=== PATIENT | male | born 1985 | race Caucasian/White ===

== ENCOUNTER 2023-11-14 13:04 | Emergency (ER) | payer BC ==
[2023-11-14 13:28] VITALS: TEMP 96.8
[2023-11-14] MEDS: XYLOCAINE 1% HCL 20 ML MDV IJ ONE (13:40)
[2023-11-14] MEDS ORDERED: XYLOCAINE 1% HCL 20 ML MDV ONE (13:41)
--- NOTE | 2023-11-14 14:01 | ERPHSYRPT ---
- History of Present Illness Time Seen by Provider: 11/14/23 13:29 Source: patient, family () Exam Limitations: no limitations Patient Subjective Stated Complaint: Laceration Triage Nursing Assessment: Patient ambulated back to ED and transferred self to bed. Patient A+O x 3. Patient's skin pink, warm and dry. Patient states he was lifting a broken toilet when it broke causing a laceration to right wrist area. Patient has 4 cm laceration noted. 2 cm noted to be scratch and 2 cm X 0.5 cm. Patient denies pain or discomfort. reports patient passed out in the car on the way to hospital and had a seizure. Patient's pants and underpants noted to be wet. Physician History: About 1 hour ago pt was lifting a porcelain toilet at a friend's house and cut his right wrist. On the way to the hospital pt had a ~ 1 minute seizure described as jerking with loss of consciousness. Pt denies chest pain, shortness of air, fever, abdominal pain. Last tetanus is within 5 years. Allergies/Adverse Reactions: No Known Drug Allergies Allergy (Unverified 11/14/23 13:09) Home Medications: No Reportable Medications [No Reported Medications] 11/14/23 [History] Hx Influenza Vaccination/Date Given: No Hx Pneumococcal Vaccination/Date Given: No Immunizations Up to Date: Yes Travel Risk - International Travel Have you traveled outside of the country in past 3 weeks: No - Emerging Infectious Disease Are you exhibiting symptoms associated with any current EIDs: No - Review of Systems Constitutional: No Fever Ears, Nose, & Throat: No Ear Pain, No Throat Pain Respiratory: No Dyspnea Cardiac: No Chest Pain Abdominal/Gastrointestinal: No Abdominal Pain, No Nausea, No Vomiting, No Diarrhea Genitourinary Symptoms: No Dysuria Skin: Other (laceration to right wrist) Neurological: No Headache - Past Medical History Pertinent Past Medical History: No Neurological History: No Pertinent History ENT History: No Pertinent History Cardiac History: No Pertinent History Respiratory History: No Pertinent History Endocrine Medical History: No Pertinent History Musculoskeletal History: No Pertinent History GI Medical History: No Pertinent History History: No Pertinent History Psycho-Social History: No Pertinent History Male Reproductive Disorders: No Pertinent History - Past Surgical History Past Surgical History: No Neuro Surgical History: No Pertinent History Cardiac: No Pertinent History Respiratory: No Pertinent History Gastrointestinal: No Pertinent History Genitourinary: No Pertinent History Musculoskeletal: No Pertinent History Male Surgical History: No Pertinent History - Social History Smoking Status: Current every day smoker How long have you smoked: years Exposure to second hand smoke: Yes Drug Use: none - Social Determinants of Health Will the patient participate in the screening: Yes Do you worry about a steady place to live?: No Do you have any problems with any of the following?: No known problems In the past 12 months,have you had to go without utilities?: No Transportation Issues: No Has anyone in your support network made you feel unsafe?: No Have you or anyone in your house had to go without enough: No - Nursing Vital Signs Nursing Vital Signs: Initial Vital Signs Temperature 96.8 F 11/14/23 13:13 Pulse Rate 79 11/14/23 13:13 Respiratory Rate 20 11/14/23 13:13 Blood Pressure 107/73 11/14/23 13:13 O2 Sat by Pulse Oximetry 94 L 11/14/23 13:13 Pain Scale Pain Intensity 0 - [place] Coma Scale Best Eye Response (Chaim): (4) open spontaneously Best Verbal Response ([place]): (5) oriented Best Motor Response (Chaim): (6) obeys commands [place] Total: 15 - Physical Exam General Appearance: alert Eye Exam: bilateral eye: PERRL, EOMI Ears, Nose, Throat Exam: TMs normal, pharynx normal, moist mucous membranes Neck Exam: normal inspection Respiratory: lungs clear, airway intact Cardiovascular: normal heart sounds Gastrointestinal: normal bowel sounds Extremity Exam: normal range of motion, No pedal edema Peripheral Pulses: dorsalis-pedis (R): 2+, dorsalis-pedis (L): 2+ Mental Status: alert, cooperative stitcher set up operator automatic Exam: normal hearing, normal speech, PERRL, tongue midline, No facial asymmetry Motor/Sensory: no motor deficit, no sensory deficit Skin Exam: laceration (volar aspect of right wrist has a ~ 2 cm scratch and a 2 cm laceration) SpO2 Interpretation: normal SpO2: 94 O2 Delivery: Room Air Procedures - Laceration/Wound Repair Right Volar Wrist Wound Location: Right, wrist Wound Length (cm): 2 Wound's Depth, Shape: superficial Wound Explored: clean Irrigated: Yes Hibiclens Prep: Yes Anesthesia: 1% Lidocaine Volume Anesthetic (ccs): 4 Wound Repaired With: sutures Suture Size/Type: 4-0, prolene Number of Sutures: 7 Layer Closure?: No - Course Nursing assessment & vital signs reviewed: Yes EKG Interpreted by Me: RATE (85), Sinus Rhythm, NORMAL AXIS, Other (QTc = 433) - Radiology Exams Chest X-ray Interpretation: Teleradiologist Report (X-ray for the chest is unremarkable), No Pneumonia - CT Exams Head CT Interpretation: Negative (No acute intracranial abnormality) Ordered Tests: Active Orders 24 hr Category Date Time Status EKG-ER Only STAT Care 11/14/23 13:58 Active IV Insertion STAT Care 11/14/23 13:55 Active Prepare for Sutures STAT Care 11/14/23 13:58 Active Sutures STAT Care 11/14/23 13:58 Active Wound Care STAT Care 11/14/23 13:58 Active CHEST 2 VIEWS (PA AND LAT) Stat Exams 11/14/23 13:56 Completed HEAD WITHOUT CONTRAST [CT] Stat Exams 11/14/23 13:57 Completed CBC W DIFF Stat Lab 11/14/23 14:00 Completed CMP Stat Lab 11/14/23 14:00 Completed MAGNESIUM Stat Lab 11/14/23 14:00 Completed TROPONIN Q4H Lab 11/14/23 14:00 Completed TROPONIN Q4H Lab 11/14/23 18:00 Ordered TROPONIN Q4H Lab 11/14/23 22:00 Ordered UA W/RFX UR CULTURE Stat Lab 11/14/23 14:59 Completed Urine Triage Profile Stat Lab 11/14/23 14:59 Completed Medication Summary Generic Name Dose Route Start Last Admin Trade Name Freq PRN Reason Stop Dose Admin Sodium Chloride 1,000 mls @ 100 mls/hr 11/14/23 14:00 11/14/23 14:30 Sodium Chloride 0.9% 1000 Ml IV 12/14/23 13:59 100 mls/hr .Q10H DEBORAH Administration Discontinued Medications Generic Name Dose Route Start Last Admin Trade Name Freq PRN Reason Stop Dose Admin Lidocaine HCl 4 ml 11/14/23 13:38 11/14/23 13:40 Lidocaine Hcl 1% 20 Ml Mdv 20 Ml Ml IJ 11/14/23 13:39 4 ml STAT ONE Administration Lidocaine HCl Confirm 11/14/23 13:41 Lidocaine Hcl 1% 20 Ml Mdv 20 Ml Ml Administered 11/14/23 13:42 Dose 4 ml .ROUTE .K-MED ONE Lab/Rad Data: Laboratory Result Diagrams 11/14/23 14:00 11/14/23 14:00 Laboratory Results 11/14/23 11/14/23 11/14/23 Range/Units 14:59 14:59 14:00 WBC (4.0-10.5) x10^3/uL RBC (4.1-5.6) x10^6/uL Hgb (12.5-18.0) g/dL Hct (42-50) % MCV (78-100) fL MCH (26-32) pg MCHC (32-36) g/dL RDW (11.5-14.0) % Plt Count (150-450) x10^3/uL MPV (7.5-11.0) fL Gran % (36.0-66.0) % Immature Gran % (Auto) (0.00-0.4) % Nucleat RBC Rel Count (0.00-0.1) % Eos # (Auto) (0-0.5) x10^3/uL Immature Gran # (Auto) (0.00-0.03) x10^3u/L Absolute Lymphs (auto) (1.0-4.6) x10^3/uL Absolute Monos (auto) (0.0-1.3) x10^3/uL Absolute Nucleated RBC (0.00-0.01) x10^3u/L Lymphocytes % (24.0-44.0) % Monocytes % (0.0-12.0) % Eosinophils % (0.00-5.0) % Basophils % (0.0-0.4) % Absolute Granulocytes (1.4-6.9) x10^3/uL Basophils # (0-0.4) x10^3/uL Sodium (135-145) mmol/L Potassium (3.5-5.1) mmol/L Chloride (98-107) mmol/L Carbon Dioxide (22-30) mmol/L Anion Gap (5-15) MEQ/L BUN (9-20) mg/dL Creatinine (0.66-1.25) mg/dL Estimated GFR ML/MIN Glucose (74-106) mg/dL Calcium (8.4-10.2) mg/dL Magnesium (1.6-2.3) mg/dL Total Bilirubin (0.2-1.3) mg/dL AST (17-59) U/L ALT (0-50) U/L Alkaline Phosphatase (38-126) U/L Troponin I < 0.012 (0.000-0.033) ng/mL Serum Total Protein (6.3-8.2) g/dL Albumin (3.5-5.0) g/dL Urine Color Yellow (Yellow) Urine Appearance Clear (Clear) Urine pH 5.5 (4.6-8.0) Ur Specific [place] 1.020 (1.005-1.030) Urine Protein Negative (Negative) Urine Glucose (UA) Negative (Negative) mg/dL Urine Ketones Negative (Negative) Urine Blood Negative (Negative) Urine Nitrite Negative (Negative) Urine Bilirubin Negative (Negative) Urine Urobilinogen 0.2 (0.2) mg/dL Ur Leukocyte Esterase Negative (Negative) U Hyaline Cast (Auto) NONE SEEN (0-2) /LPF Urine Microscopic RBC 0-2 (0-5) /HPF Urine Microscopic WBC 0-2 (0-5) /HPF Ur Epithelial Cells None Seen (None Seen) /HPF Urine Bacteria None Seen (None Seen) /HPF Urine Culture Reflexed NO (NO) Urine Opiates Level NEGATIVE (NEGATIVE) Ur Methadone NEGATIVE (NEGATIVE) Urine Barbiturates NEGATIVE (NEGATIVE) Ur Phencyclidine (PCP) NEGATIVE (NEGATIVE) Urine Amphetamine NEGATIVE (NEGATIVE) U Benzodiazepine Level NEGATIVE (NEGATIVE) Urine Cocaine NEGATIVE (NEGATIVE) Urine Marijuana (THC) NEGATIVE (NEGATIVE) 11/14/23 11/14/23 Range/Units 14:00 14:00 WBC 8.7 (4.0-10.5) x10^3/uL RBC 5.29 (4.1-5.6) x10^6/uL Hgb 16.6 (12.5-18.0) g/dL Hct 48.3 (42-50) % MCV 91.3 (78-100) fL MCH 31.4 (26-32) pg MCHC 34.4 (32-36) g/dL RDW 12.3 (11.5-14.0) % Plt Count 211 (150-450) x10^3/uL MPV 10.5 (7.5-11.0) fL Gran % 65.8 (36.0-66.0) % Immature Gran % (Auto) 0.7 H (0.00-0.4) % Nucleat RBC Rel Count 0.0 (0.00-0.1) % Eos # (Auto) 0.16 (0-0.5) x10^3/uL Immature Gran # (Auto) 0.06 H (0.00-0.03) x10^3u/L Absolute Lymphs (auto) 2.30 (1.0-4.6) x10^3/uL Absolute Monos (auto) 0.39 (0.0-1.3) x10^3/uL Absolute Nucleated RBC 0.00 (0.00-0.01) x10^3u/L Lymphocytes % 26.6 (24.0-44.0) % Monocytes % 4.5 (0.0-12.0) % Eosinophils % 1.8 (0.00-5.0) % Basophils % 0.6 (0.0-0.4) % Absolute Granulocytes 5.70 (1.4-6.9) x10^3/uL Basophils # 0.05 (0-0.4) x10^3/uL Sodium 139 (135-145) mmol/L Potassium 4.4 (3.5-5.1) mmol/L Chloride 110 H (98-107) mmol/L Carbon Dioxide 22 (22-30) mmol/L Anion Gap 11.8 (5-15) MEQ/L BUN 12 (9-20) mg/dL Creatinine 1.01 (0.66-1.25) mg/dL Estimated GFR 98.2 ML/MIN Glucose 111 H (74-106) mg/dL Calcium 9.4 (8.4-10.2) mg/dL Magnesium 2.0 (1.6-2.3) mg/dL Total Bilirubin 0.60 (0.2-1.3) mg/dL AST 33 (17-59) U/L ALT 48 (0-50) U/L Alkaline Phosphatase 62 (38-126) U/L Troponin I (0.000-0.033) ng/mL Serum Total Protein 7.7 (6.3-8.2) g/dL Albumin 4.5 (3.5-5.0) g/dL Urine Color (Yellow) Urine Appearance (Clear) Urine pH (4.6-8.0) Ur Specific [place] (1.005-1.030) Urine Protein (Negative) Urine Glucose (UA) (Negative) mg/dL Urine Ketones (Negative) Urine Blood (Negative) Urine Nitrite (Negative) Urine Bilirubin (Negative) Urine Urobilinogen (0.2) mg/dL Ur Leukocyte Esterase (Negative) U Hyaline Cast (Auto) (0-2) /LPF Urine Microscopic RBC (0-5) /HPF Urine Microscopic WBC (0-5) /HPF Ur Epithelial Cells (None Seen) /HPF Urine Bacteria (None Seen) /HPF Urine Culture Reflexed (NO) Urine Opiates Level (NEGATIVE) Ur Methadone (NEGATIVE) Urine Barbiturates (NEGATIVE) Ur Phencyclidine (PCP) (NEGATIVE) Urine Amphetamine (NEGATIVE) U Benzodiazepine Level (NEGATIVE) Urine Cocaine (NEGATIVE) Urine Marijuana (THC) (NEGATIVE) - Progress Progress: improved Counseled pt/family regarding: lab results, diagnosis, need for follow-up, rad results Medical Desision Making - Diagnostic Testing Diagnostic test were ordered, analyzed, and reviewed by me: Yes Radiological Interpretation: Teleradiologist Report - Departure Departure Disposition: Home Clinical Impression: Seizure, Laceration to right wrist Condition: Stable Critical Care Time: No Referrals: KERRY DAVILA NP [Primary Care Provider] - Follow up/PCP as directed Instructions: Laceration Repair With Stitches (DC), Seizures, Adult ED Additional Instructions: Follow up with private doctor tomorrow. Keep right wrist wound clean & dry; have sutures removed in 10 days; neosporin & bandage to wound for the next 10 days. Forms: Work/School Release Form
[2023-11-14 14:09] LABS: BASOPHIL % 0.6 % (0.0-0.4); Basophil (Absolute #) 0.05 x10^3/uL (0-0.4); Eosinophil % 1.8 % (0.00-5.0); Eosinophil (Absolute #) 0.16 x10^3/uL (0-0.5); Hematocrit 48.3 % (42-50); Hemoglobin 16.6 g/dL (12.5-18.0); IMMATURE GRAN # 0.06 x10^3u/L (0.00-0.03); IMMATURE GRAN % 0.7 % (0.00-0.4); Lymphocytes % 26.6 % (24.0-44.0); Mean Cell Volume 91.3 fL (78-100); Mean Corpuscular Hemoglobin 31.4 pg (26-32); Mean Corpuscular Hgb Concent. 34.4 g/dL (32-36); Mean Platelet Volume 10.5 fL (7.5-11.0); Monocyte (Absolute #) 0.39 x10^3/uL (0.0-1.3); Monocytes % 4.5 % (0.0-12.0); Neutrophil % 65.8 % (36.0-66.0); Platelet Count 211 x10^3/uL (150-450); Red Blood Count 5.29 x10^6/uL (4.1-5.6); Red Cell Distribution Width 12.3 % (11.5-14.0); White Blood Count 8.7 x10^3/uL (4.0-10.5)
[2023-11-14 14:22] LABS: ALBUMIN 4.5 g/dL (3.5-5.0); ANION GAP 11.8 MEQ/L (5-15); BILIRUBIN,TOTAL 0.6 mg/dL (0.2-1.3); Calcium 9.4 mg/dL (8.4-10.2); Creatinine 1 1.01 mg/dL (0.66-1.25); EST GLOMERULAR FILTRATION RATE 98.2 ML/MIN; Potassium 4.4 mmol/L (3.5-5.1); Total Protein 7.7 g/dL (6.3-8.2)
[2023-11-14] MEDS ORDERED: Sodium Chloride 0.9% 1000 ML 1,000 ML ONE (14:28)
[2023-11-14] MEDS: Sodium Chloride 0.9% 1000 ML 1,000 ML IV SCH (14:30)
--- NOTE | 2023-11-14 15:12 | XRAY ---
CLINICAL HISTORY: seizure COMPARISON: None. TECHNIQUE: Contiguous, multislice, non-contrast CT scan of the brain was performed in the axial plane with multiplanar reformatted images. One of the following dose reduction techniques were utilized for this exam: Automated exposure control, adjustment of the mA and/or kV according to patient size, use of iterative reconstruction. CTDI: 53.92 mGy, DLP: 1125.61 mGy*cm. FINDINGS: Normal CT attenuation of both cerebral hemispheres with no areas of abnormal attenuation values. No suspicious space-occupying lesions. No intra or extra-axial collections of fresh blood density. Normal size and shape of the ventricles, basal cisterns, and cortical sulci. The basal ganglia, thalamus, and internal capsule appear normal. Brainstem and mark appear normal. No shift of midline structures. Unremarkable posterior fossa. Choroid plexus calcifications noted (normal variant). Largely preserved cranial calvarial bones. Visualized paranasal sinuses shows mild mucosal thickening seen in the left posterior ethmoidal sinus suggesting mucosal disease. Deviated nasal septum towards the right side. Partial pneumatization of the mastoid air cells on right side suggesting chronic mastoiditis. Few calcified densities seen subcutaneously in the right frontal region, likely nonspecific IMPRESSION: No acute intracranial abnormality. Electronically Signed by: Eula Erickson MD. (11/14/2023 15:08:43 EDT)
[2023-11-14 15:28] LABS: Appearance Clear (Clear); Bacteria None Seen /HPF (None Seen); Bilirubin Negative (Negative); Blood Negative (Negative); Epithelial Cells None Seen /HPF (None Seen); Glucose, Urine Negative (Negative); Hyaline Casts NONE SEEN /LPF (0-2); Ketones Negative (Negative); Leukocyte Esterase Negative (Negative); Nitrite Negative (Negative); Ph 5.5 (4.6-8.0); Protein,Urine Dip Negative (Negative); RBC 0-2 /HPF (0-5); Urobilinogen 0.2 mg/dL (0.2); WBC 0-2 /HPF (0-5)
[2023-11-14 15:38] LABS: Amphetamine,Urine NEGATIVE (NEGATIVE); Barbiturate,Urine NEGATIVE (NEGATIVE); Benzodiazepine,Urine NEGATIVE (NEGATIVE); Cocaine,Urine NEGATIVE (NEGATIVE); Methadone,Urine NEGATIVE (NEGATIVE); Opiate,Urine NEGATIVE (NEGATIVE); PCP,Urine NEGATIVE (NEGATIVE); THC,Urine NEGATIVE (NEGATIVE)
[2023-11-14 15:43] LABS: ADD URINE CULTURE? NO (NO)
--- NOTE | 2023-11-14 16:26 | XRAY ---
CLINICAL HISTORY: seizure COMPARISON: None. TECHNIQUE: X-ray of the chest, PA, and lateral 2 views. FINDINGS: Prominent interstitial lung markings are noted bilaterally. This is likely due to the exposure factor of radiograph. No consolidation or collapse is noted. Normal configuration of the mediastinum. The [place] are normal in size and position. The cardiac size is normal. Costophrenic and cardiophrenic angles are clear. Retrocardiac and retrosternal spaces are normal. The bony thorax is unremarkable. IMPRESSION: X-ray for the chest is unremarkable. Electronically Signed by: Eula Erickson MD. (11/14/2023 16:23:20 EDT)
[2023-11-14 17:08] VITALS: O2SAT 94
[2023-11-14 17:11] VITALS: BP 113/65; PULSE 88; RESP 17
== END 2023-11-14 17:17 | disposition home or self-care (01) ==
LOC: ED 13:04
DX: S61.511A Laceration without foreign body of right wrist, initial encounter (principal); W26.8XXA Contact with other sharp object(s), not elsewhere classified, initial encounter; R56.9 Unspecified convulsions; Z72.0 Tobacco use
CPT/HCPCS: 12001; 36000; 36415; 70450; 71046; 80053; 80307; 81001; 83735; 84484; 85025; 93005; 96372; 99284